=== PATIENT | female | born 1995 | race African-American/Black ===

== ENCOUNTER 2016-12-06 18:06 | Observation (INO) | payer MEDICAID ==
[~2016-12-06] VITALS: Ht 170.2 cm; Wt 55.0 kg
[2016-12-06 18:07] VITALS: BP 138/69; PULSE 68; RESP 15; TEMP 98.3; O2SAT 99
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
[2016-12-06 18:38] LABS: AUTOMATED NEUTROPHIL # 2.3 TH/MM3 (1.8-7.7); BASOPHIL % 0.8 % (0.0-2.0); EOSINOPHIL # 0.2 TH/MM3 (0-0.4); HEMO FLAGS DIFF FINAL; LYMPH % 44.4 % (9.0-44.0); LYMPHOCYTE # 2.5 TH/MM3 (1.0-4.8); MEAN CELL VOLUME 81.6 FL (80.0-100.0); MEAN CORPUSCULAR HEMOGLOBIN 25.7 PG (27.0-34.0); MEAN CORPUSCULAR HGB CONC 31.5 % (32.0-36.0); MONO % 11.7 % (0.0-8.0); NEUT % 40.1 % (16.0-70.0); PLATELET COUNT 288 TH/MM3 (150-450); RED BLOOD COUNT 4.65 MIL/MM3 (4.00-5.30); RED CELL DISTRIBUTION WIDTH 14.8 % (11.6-17.2); WHITE BLOOD COUNT 5.6 TH/MM3 (4.0-11.0)
[2016-12-06 18:47] LABS: APTT (PATIENT) 27.8 SEC (24.3-30.1); INTERNATIONAL NORMALIZED RATIO 1.1 RATIO; PROTHROMBIN TIME - PATIENT 11.8 SEC (9.8-11.6)
--- NOTE | 2016-12-06 18:54 | RADRPT ---
EXAM DATE/TIME: 12/06/2016 18:25 [facility] COMPARISON: No previous studies available for comparison. INDICATIONS : Chest Pain MEDICAL HISTORY : None. SURGICAL HISTORY : None. ENCOUNTER: Initial ACUITY: 1 day PAIN SCORE: 4/10 LOCATION: Bilateral chest FINDINGS: A single view of the chest demonstrates the lungs to be symmetrically aerated without evidence of mas s, infiltrate or effusion. The cardiomediastinal contours are unremarkable. Scoliosis of the thoraco lumbar spine is noted. CONCLUSION: 1. No acute cardiopulmonary disease. 2. Scoliosis of the thoracolumbar spine. Priyank Olguin MD on December 06, 2016 at 18:51 Board Certified Radiologist. This report was verified electronically.
[2016-12-06 18:58] LABS: ANION GAP 6 MEQ/L (5-15); BLOOD UREA NITROGEN 11 MG/DL (7-18); CHLORIDE 105 MEQ/L (98-107); GLOMERULAR FILTRATION RATE 116 ML/MIN (>89); MAGNESIUM 2.2 MG/DL (1.5-2.5); POTASSIUM 3.8 MEQ/L (3.5-5.1); SODIUM (NA) 139 MEQ/L (136-145)
[2016-12-06 19:13] LABS: CREATINE KINASE 3381 U/L (26-192)
[2016-12-06] MEDS ORDERED: SODIUM CHLOR 0.9% 1000 ML INJ 1,000 ML IV ONE (19:15)
[2016-12-06 19:25] LABS: CKMB 1.5 NG/ML (0.5-3.6)
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
[2016-12-06 20:12] VITALS: BP 119/58; PULSE 73; RESP 18; O2SAT 100
[2016-12-06] MEDS ORDERED: TEMAZEPAM 15 MG CAP PO PRN (20:30)
[2016-12-06] MEDS ORDERED: SODIUM CHLORIDE 0.9% FLUSH 10 ML FLUSH IV FLUSH PRN (20:30)
[2016-12-06] MEDS ORDERED: NALOXONE HCL 0.4 MG/ML AMP IV PRN ×2 (20:30)
[2016-12-06] MEDS ORDERED: SENNOSIDES 8.6 MG TAB PO PRN (20:30)
[2016-12-06] MEDS ORDERED: LACTULOSE SYRUP 20 GM/30 ML CUP PO PRN (20:30)
[2016-12-06] MEDS ORDERED: ACETAMINOPHEN 325 MG TAB PO PRN (20:30)
[2016-12-06] MEDS ORDERED: ONDANSETRON HCL 4 MG/2 ML VIAL IVP PRN (20:30)
[2016-12-06] MEDS ORDERED: MAGNESIUM HYDROXIDE SUSP 30 ML CUP PO PRN (20:30)
[2016-12-06] MEDS ORDERED: BISACODYL 10 MG SUPP RECTAL PRN (20:30)
[2016-12-06] MEDS: DOCUSATE SODIUM 50 MG/SENNA 8.6 MG TAB PO SCH (21:00)
[2016-12-06] MEDS: SODIUM CHLORIDE 0.9% FLUSH 10 ML FLUSH IV FLUSH SCH (21:00)
[2016-12-06] MEDS: ACETAMINOPHEN/HYDROcodone 325 MG/5 MG TAB PO PRN (21:02)
[2016-12-06] MEDS: SODIUM CHLOR 0.9% 1000 ML INJ 1,000 ML IV SCH (21:02)
--- NOTE | 2016-12-06 21:23 | EKG ---
Date Performed: 12/06/2016 Time Performed: 18:23:41 PTAGE: 21 years EKG: Sinus rhythm WITH FIRST DEGREE AV BLOCK ABNORMAL ECG NO PREVIOUS TRACING DOCTOR: Sohail Mcmillan Interpretating Date/Time 12/06/2016 21:22:35
[2016-12-06 21:25] VITALS: BP 107/53; PULSE 77; RESP 18; TEMP 98; O2SAT 98
[2016-12-06 23:46] VITALS: BP 109/49; PULSE 111; RESP 18; TEMP 98.4; O2SAT 99
[2016-12-07 01:45] LABS: AUTOMATED NEUTROPHIL # 1.8 TH/MM3 (1.8-7.7); BASOPHIL % 0.3 % (0.0-2.0); EOSINOPHIL # 0.2 TH/MM3 (0-0.4); EOSINOPHIL % 3.3 % (0.0-4.0); HEMATOCRIT 32.4 % (35.0-46.0); HEMO FLAGS DIFF FINAL; LYMPH % 50.3 % (9.0-44.0); LYMPHOCYTE # 2.7 TH/MM3 (1.0-4.8); MEAN CELL VOLUME 80.1 FL (80.0-100.0); MEAN CORPUSCULAR HEMOGLOBIN 27.5 PG (27.0-34.0); MEAN CORPUSCULAR HGB CONC 34.3 % (32.0-36.0); MONO % 13.4 % (0.0-8.0); NEUT % 32.7 % (16.0-70.0); PLATELET COUNT 254 TH/MM3 (150-450); RED BLOOD COUNT 4.05 MIL/MM3 (4.00-5.30); RED CELL DISTRIBUTION WIDTH 14.5 % (11.6-17.2); WHITE BLOOD COUNT 5.4 TH/MM3 (4.0-11.0)
[2016-12-07 02:13] LABS: ALKALINE PHOSPHATASE 49 U/L (45-117); ALT (GPT) 41 U/L (9-42); ANION GAP 7 MEQ/L (5-15); AST (GOT) 58 U/L (16-38); BICARBONATE 27.5 MEQ/L (21.0-32.0); BLOOD UREA NITROGEN 10 MG/DL (7-18); CHLORIDE 109 MEQ/L (98-107); CREATINE KINASE 1961 U/L (26-192); GLOMERULAR FILTRATION RATE 138 ML/MIN (>89); POTASSIUM 3.9 MEQ/L (3.5-5.1); SODIUM (NA) 143 MEQ/L (136-145); TOTAL BILIRUBIN ADULT 0.1 MG/DL (0.2-1.0)
[2016-12-07 02:31] LABS: CKMB 1.5 NG/ML (0.5-3.6)
[2016-12-07] MEDS: SODIUM CHLOR 0.9% 1000 ML INJ 1,000 ML IV SCH (03:04)
[2016-12-07 04:25] VITALS: BP 99/48; PULSE 81; RESP 18; TEMP 98.4; O2SAT 100
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
[2016-12-07] MEDS: DOCUSATE SODIUM 50 MG/SENNA 8.6 MG TAB PO SCH (07:15)
[2016-12-07] MEDS: ACETAMINOPHEN/HYDROcodone 325 MG/5 MG TAB PO PRN (07:15)
[2016-12-07] MEDS: SODIUM CHLORIDE 0.9% FLUSH 10 ML FLUSH IV FLUSH SCH (07:16)
[2016-12-07 08:18] VITALS: BP 111/60; PULSE 76; RESP 16; TEMP 98; O2SAT 97
--- NOTE | 2016-12-07 08:48 | HHI.DCPOC ---
Discharge Care Plan Diagnosis: (1) Rhabdomyolysis (2) Chest pain Goals to Promote Your Health * To prevent worsening of your condition and complications * To maintain your health at the optimal level Directions to Meet Your Goals Take your medications as prescribed Follow your dietary instruction Follow activity as directed Keep your appointments as scheduled Take your immunizations and boosters as scheduled If your symptoms worsen call your PCP, if no PCP go to Urgent Care Center or Emergency Room Smoking is Dangerous to Your Health. Avoid second hand smoke Call the 24-hour hour crisis hotline for domestic abuse at Radha Sin MD December 07, 2016 08:48
[2016-12-07 11:26] VITALS: BP 112/51; PULSE 89; RESP 16; TEMP 98.3; O2SAT 96
== END 2016-12-07 12:36 | disposition home or self-care (01) ==
LOC: NEPD 18:06 → NEDA 19:58 → NEPFCDU 21:23
PROVIDERS: ADMIT Family Medicine; ATTEND Family Medicine
DX: R07.89 Other chest pain (principal); T79.6XXA Traumatic ischemia of muscle, initial encounter; D64.9 Anemia, unspecified; R74.8 Abnormal levels of other serum enzymes; R74.0 Nonspecific elevation of levels of transaminase and lactic acid dehydrogenase [LDH]; V43.92XA Unspecified car occupant injured in collision with other type car in traffic accident, initial encounter
CPT/HCPCS: 71010; 80048; 80053; 82550; 82552; 83735; 84484; 84703; 85025; 85379; 85610; 85730; 93005; 99285; G0378; J7030